=== PATIENT | male | born 1965 | race Caucasian/White ===

== ENCOUNTER 2020-01-23 12:10 | Day surgery (SDC) | payer SELFPAY ==
--- NOTE | 2020-01-21 08:51 | EKG12_ITS ---
Test Reason : Blood Pressure : / mmHG Vent. Rate : 064 BPM Atrial Rate : 064 BPM P-R Int : 156 ms QRS Dur : 106 ms QT Int : 416 ms P-R-T Axes : 030 -04 025 degrees QTc Int : 429 ms Normal sinus rhythm Normal ECG Confirmed by GUME BERMEO, DORIS ([id number]), editor farm journal CAMILA BAUMAN ([id number]) on 01/22/2020 8:44:15 AM Referred By: Major Li Confirmed By:DORIS DUNAWAY MD
[2020-01-21 10:20] LABS: Anion Gap 3 (5-15); BUN 31 mg/dL (7-18); BUN/Creat Ratio 16.6 RATIO (10-20); Calcium,Total 8.8 mg/dL (8.5-10.1); Chloride 108 mmol/L (98-107); Creatinine, Serum 1.87 mg/dL (0.70-1.30); EST Glomerular Filtration Rate 40 mL/min (>60); Est Glom Filt Rate - Afr Amer 48 mL/min (>60); Glucose 84 mg/dL (74-106); Potassium 3.8 mmol/L (3.5-5.1); Sodium Level 144 mmol/L (136-145)
[2020-01-23] VITALS (10 sets, daily range): BP systolic 137–174; BP diastolic 90–111; PULSE 51–67; RESP 16–18; TEMP 36.1–36.6; O2SAT 93–100; BMI 29.2; BMI 30.8
[2020-01-23] MEDS: Lactated Ringers 1,000 ML 100 ML IV (13:03)
--- NOTE | 2020-01-23 14:20 | PROS_PTH ---
PATIENT: WESLEY WATT LOC: [facility] [place] U#:[id number] AGE/SX: 54/M ROOM: RE01/23/[address]: Dr. 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 Focal mild chronic inflammation. SJ:luis 01/25/20 MICROSCOPIC DESCRIPTION Slides are reviewed. GROSS DESCRIPTION Received is one container labeled with the patient's name and designated prostate tissue. The specimen consists of multiple irregular fragments of pink-polanco, rubbery, soft tissue that in aggregate weigh 11.3 gm and measure in aggregate 6 x 6 x 0.7 cm. The entire specimen is submitted in nine cassettes. / AM:luis 01/24/20 TC:5 CPT: 64535
[2020-01-23] MEDS: Cefazolin 2 GM in 0.9% Normal Saline 100 ML IV (15:53)
--- NOTE | 2020-01-23 16:02 | PCM.HP.STD ---
Problem List (1) BPH with obstruction/lower urinary tract symptoms Status: Acute History of Present Illness Date of Admission: 01/23/20 Chief Complaint: BPH with obstruction retention of urine The patient is a 54 year old male who has a history of BPH with obstruction is on maximal medical therapy with Proscar and tamsulosin still not emptying his bladder all the way having significant problems with going to the bathroom and urinating discussed with the patient that we can do a transurethral resection of the prostate understands is possible the surgery may not work and that he may need to be on self intermittent catheterization the bladder may be atonic and not working properly. Past Medical History Allergies No Known Allergies Allergy (Verified 01/23/20 12:25) Home Medications: Ambulatory Orders Medication Instructions Recorded Iron Carbonyl [Feosol] 55 mg PO DAILY 01/18/20 Lisinopril/Hydrochlorothiazide 1 ea PO DAILY 01/18/20 [Lisinopril-Hctz 20-12.5 mg Tab] Multivitamins,Ther W-Minerals 1 tab PO DAILY 01/18/20 [Multivitamin With Minerals (BKC)] Niacin 500 mg PO DAILY 01/18/20 Tamsulosin HCl [Flomax] 0.4 mg PO BID 01/18/20 Surgical History: no surgical history Smoking Status: Never smoker Review of Systems Constitutional: Denies: Chills, Fever, Weight Change HEENT: Denies: Head Aches, Sinus Congestion, Sinus Drainage Cardiovascular: Denies: Chest Pain, Palpitations Respiratory: Denies: Cough, Shortness of breath at rest, Sputum production Gastrointestinal: Denies: Abdominal Pain, Nausea, Vomiting Genitourinary: Denies: Dysuria Musculoskeletal: Denies: Joint Pain, Joint Tenderness Skin: Denies: Rash, Wounds Neurological: Denies: Numbness, Tingling, Focal weakness Psychiatric: Denies: Anxiety, Depression, Homicidal Ideations, Suicidal Ideations Hematologic/ Lymphatic: Denies: Easy Bruising, Easy Bleeding VTE Information - Inpt Only VTE Present on Admission: No Patient Problems: Active and Suspected Problems BPH with obstruction/lower urinary tract symptoms (Acute) - Physical Exam Vitals/I&O's: Vital Signs Temp Pulse Resp BP Pulse Ox 97.4 F L 64 16 149/90 H 100 01/23/20 12:39 01/23/20 12:39 01/23/20 12:39 01/23/20 12:39 01/23/20 12:39 Oxygen Delivery Method Room Air Weight: 95.1 kg Body Mass Index (BMI) 29.2 General: Alert, Oriented x3, Cooperative HEENT: Atraumatic, PERRLA, EOMI, Normocephalic Neck: Supple, No JVD, Negative Carotid Bruits Lungs: Clear to auscultation, Normal air movement Cardiovascular: Regular rate, No murmurs Abdomen: Bowel Sounds Present, Soft, Non Tender Extremities: No edema, Capillary Refill Less than 3 Seconds Skin: No rashes, No breakdown Musculoskeletal: No Tenderness to Palpation of Joints or Extremities Neurological: Cranial nerves II-XII grossly intact Psych/Mental Status: Normal Affect, Appropriate Current Medications Lactated Ringer's () 1,000 mls @ 100 mls/hr IV .Q10H ADIA Last Admin: 01/23/20 13:03 Dose: 100 mls/hr Documented by: Assessment/Plan All Active Problems BPH with obstruction/lower urinary tract symptoms (Acute) Plan to proceed with a transurethral resection of the prostate.
--- NOTE | 2020-01-23 16:04 | DCINST_ITS ---
Discharge Diet: Light diet - advance as tolerated Discharge Activity: Return to Normal Activity, May not drive while taking narcotic pain medications. Call your doctor if your incision/area has: Continuous Slow Oozing, Sudden Increased Bleeding, Increased Pain/ Swelling, Increased Redness, Foul Smelling Discharge, Swelling at the incision site Call your doctor if you observe: Inability to urinate Suture Line Care: Avoid Pulling/Pushing, Avoid Pinching/Bending Instructions: Transurethral Resection of the Prostate (TURP): Hospital Recovery, Transurethral Resection of the Prostate (TURP): Home Recovery Allergies/Adverse Reactions: Allergies No Known Allergies Allergy (Verified 01/23/20 12:25) Medications to take at Discharge Iron Carbonyl [Feosol] 55 mg PO DAILY 01/18/20 Lisinopril/Hydrochlorothiazide [Lisinopril-Hctz 20-12.5 mg Tab] 1 ea PO DAILY 01/18/20 Multivitamins,Ther W-Minerals [Multivitamin With Minerals (BKC)] 1 tab PO DAILY 01/18/20 Niacin 500 mg PO DAILY 01/18/20 Tamsulosin HCl [Flomax] 0.4 mg PO BID 01/18/20 Primary Care Physician: Houston Motley DO [Primary Care Provider] - Test Results: Test results from this visit will be discussed in further detail at your follow- up appointment, if applicable. Please Follow Up With: Major Li MD When: in 2 weeks, please call to make an appointment.
--- NOTE | 2020-01-23 17:14 | OP.PCM_ITS ---
Problem List (1) BPH with obstruction/lower urinary tract symptoms Status: Acute Report of Operation Date of Procedure: 01/23/20 Pre-Operative Diagnosis: BPH with obstruction Post-Operative Diagnosis: Same Surgery/Procedure Performed:: Cystoscopy and transurethral resection of the prostate Description of Surgical Findings:: 54-year-old male has been having difficulty going to the bathroom slow stream difficulty emptying his prostatic channel has found to be a retention of urine with significant postvoid residual has been having problems with incontinence and bladder control so because of this we can proceed with a transurethral resection of the prostate and alleviate his obstruction. Patient was taken back to the operating room at the smooth induction of general anesthesia he was placed in dorsolithotomy position the penis and testicles were prepped and draped in usual sterile fashion I first dilated the meatus with sounds from 16- 24 [place] I then went into the urethra with a 24 [place] noncontinuous flow resectoscope I went past the verumontanum identified obstructive tissue mostly a very high riding bladder neck and the median lobe and some lateral tissue but most of the obstruction was in the bladder neck. I then switched over to the resectoscope and I very carefully resected the bladder neck tissue and the median lobe making sure not to injure the left and right ureteral orifice which are clear and open at the end of the resection I then resected the right lobe of the prostate left lobe prostate and then the apical tissue and then the roof and then obtained good hemostasis cauterized all bleeders removed all the chips from the bladder that a flow test had an adequate flow and looked in the channel he had a wide open channel from the verumontanum into the bladder neck and felt like a really should not do any more resection for the risk of incontinence. After the resection was completed patient anesthetic is being reversed and he will continue with three-way irrigation a three-way catheter was put in the bladder and irrigation is taken back to PACU in good condition. Type of Anesthesia:: General Drains: 3 way alcala - Admit VTE Documentation VTE Present on Admission: No VTE Mechan Device Prophylaxis: SCD's
[2020-01-23] MEDS: 0.9% Normal Saline 1,000 ML 150 ML IV ×2 (17:31→18:38)
[2020-01-23] MEDS: hydroCHLOROthiazide 12.5mg 12.5 MG PO (17:46)
[2020-01-23] MEDS: Lisinopril 20 MG Tablet PO (17:46)
[2020-01-23] MEDS: Ciprofloxacin 400 MG/200 ML BAG 200 MG IV (21:57)
[2020-01-23] MEDS: Docusate Sodium 100 MG Capsule PO (21:57)
[2020-01-24] MEDS: 0.9% Normal Saline 1,000 ML 150 ML IV (02:44)
[2020-01-24 02:45] VITALS: BP 126/88; PULSE 59; RESP 16; TEMP 36.7; O2SAT 98
[2020-01-24 06:15] LABS: Hematocrit 32.6 % (40-54); Hemoglobin 10.7 g/dL (13.0-16.5); Mean Corp Hgb Conc 32.8 g/dL (32-36); Mean Corpuscular Hgb 30.2 pg (27.0-32.0); Mean Corpuscular Volume 92.1 fL (80-94); Mean Platelet Vol. 9.4 fl (6.2-12.0); Platelet Count 252 K/mm3 (150-450); RBC Distribution Width CV 12.8 % (11.6-14.6); Red Blood Count 3.54 M/mm3 (4.6-6.2); White Blood Count 8.6 K/mm3 (4.4-11.0)
[2020-01-24 06:39] LABS: Anion Gap 4 (5-15); BUN 25 mg/dL (7-18); Calcium,Total 8.1 mg/dL (8.5-10.1); Chloride 105 mmol/L (98-107); Creatinine, Serum 1.67 mg/dL (0.70-1.30); EST Glomerular Filtration Rate 45 mL/min (>60); Est Glom Filt Rate - Afr Amer 55 mL/min (>60); Estimated Creatinine Clearance 49.39 ml/min; Glucose 85 mg/dL (74-106); Potassium 3.5 mmol/L (3.5-5.1); Sodium Level 140 mmol/L (136-145)
[2020-01-24 07:58] VITALS: BP 137/92; PULSE 70; RESP 16; TEMP 37.3; O2SAT 95
[2020-01-24] MEDS: Ciprofloxacin 400 MG/200 ML BAG 200 MG IV (08:40)
[2020-01-24] MEDS: Multivitamins,Ther W-Minerals Tablet 1 TABLET PO (08:41)
[2020-01-24] MEDS: Niacin SA 500 MG Tablet PO (08:41)
[2020-01-24] MEDS: Docusate Sodium 100 MG Capsule PO (08:42)
[2020-01-24] MEDS: Pantoprazole Sodium 40 MG Tablet PO (08:43)
[2020-01-24] MEDS: Lisinopril 20 MG Tablet PO (08:43)
[2020-01-24] MEDS: hydroCHLOROthiazide 12.5mg 12.5 MG PO (08:43)
== END 2020-01-24 12:07 | disposition home or self-care (01) ==
LOC: SDC 12:14 → AC 12:19 → MS3 16:56
PROVIDERS: Anesthesiology; PCP Physician Assistant; Referring Provider Urology; Visit Provider Urology
PROC: (CPT 52601; principal; 2020-01-23 14:10)
DX: N40.1 Benign prostatic hyperplasia with lower urinary tract symptoms (principal); R33.8 Other retention of urine; N13.8 Other obstructive and reflux uropathy; Z11.59 Encounter for screening for other viral diseases; Z79.899 Other long term (current) drug therapy; I10 Essential (primary) hypertension
CPT/HCPCS: 52601; 36415; 80048; 85027; 87635; 88305; 93005; 99251; J7030; J7120; G0463; J0744; J2405; U0003